=== PATIENT | male | born 1965 | race Caucasian/White ===

== ENCOUNTER 2017-12-21 04:16 | Emergency (ER) | payer SELFPAY ==
[2017-12-21] MEDS ORDERED: Tetracaine 0.5% OPHTH SOLN/PF 4 ML BOT ONE (04:48)
[2017-12-21] MEDS ORDERED: Naproxen 500 MG TAB ONE (05:09)
[2017-12-21] MEDS ORDERED: Tobramycin Sulfate 0.3% Ophth Susp 5 ml Bottle ONE (05:09)
[2017-12-21] MEDS ORDERED: HYDROcodone/Acetaminophen 10/325 mg Tablet ONE (05:09)
== END 2017-12-21 05:20 | disposition home or self-care (01) ==
LOC: MADERS 04:16
DX: S05.02XA Injury of conjunctiva and corneal abrasion without foreign body, left eye, initial encounter (principal); H11.32 Conjunctival hemorrhage, left eye; I10 Essential (primary) hypertension; X58.XXXA Exposure to other specified factors, initial encounter
CPT/HCPCS: 99283

== ENCOUNTER 2019-04-21 19:49 | Emergency (ER) | payer SELFPAY ==
[2019-04-21] MEDS ORDERED: Diazepam 5 MG TAB ONE (20:26)
[2019-04-21] MEDS ORDERED: Ibuprofen 800 MG TAB ONE (20:26)
[2019-04-21 20:56] LABS: Anion Gap 19 mmol/L (10-20); BUN (Urea Nitrogen) 7 mg/dL (8.4-25.7); CK (CPK) 204 U/L (30-200); Calc. Creatinine Clearance 0 mL/min (70-130); Calcium 9.6 mg/dL (7.8-10.44); Carbon Dioxide 20 mmol/L (22-29); Chloride 91 mmol/L (98-107); Estimated GFR-MDRD Greater than 90; Glucose 106 mg/dL (70-105); Potassium 3.3 mmol/L (3.5-5.1); Sodium 127 mmol/L (136-145)
[2019-04-21] MEDS ORDERED: Potassium Chloride 20 MEQ TAB ONE (21:14)
[2019-04-21] MEDS ORDERED: Sodium Chloride 0.9% 1,000 ML ONE (21:14)
== END 2019-04-21 22:24 | disposition home or self-care (01) ==
LOC: MADERS 19:49
DX: R25.2 Cramp and spasm (principal); E87.1 Hypo-osmolality and hyponatremia; E87.8 Other disorders of electrolyte and fluid balance, not elsewhere classified; E87.6 Hypokalemia; I10 Essential (primary) hypertension; F17.220 Nicotine dependence, chewing tobacco, uncomplicated
CPT/HCPCS: 36415; 80048; 82550; 83735; 96360; J7050

== ENCOUNTER 2022-05-12 23:58 | Emergency (ER) | payer SELFPAY ==
[2022-05-13] MEDS ORDERED: Lidocaine 1% w/Epinephrine 1:100K 20 ML VIAL ONE (00:24)
[2022-05-13] MEDS ORDERED: traMADol HCl 50 MG TAB ONE (01:15)
== END 2022-05-13 01:40 | disposition home or self-care (01) ==
LOC: MADERS 23:58
DX: S01.412A Laceration without foreign body of left cheek and temporomandibular area, initial encounter (principal); D16.5 Benign neoplasm of lower jaw bone; I10 Essential (primary) hypertension; F17.220 Nicotine dependence, chewing tobacco, uncomplicated; W01.198A Fall on same level from slipping, tripping and stumbling with subsequent striking against other object, initial encounter
CPT/HCPCS: 70450; 70486; 72125

== ENCOUNTER 2022-05-20 09:44 | Emergency (ER) | payer SELFPAY | END 2022-05-20 10:51 | disposition home or self-care (01) | LOC: MADERS 09:44 | DX: S01.81XD Laceration without foreign body of other part of head, subsequent encounter (principal); D16.5 Benign neoplasm of lower jaw bone; X58.XXXD Exposure to other specified factors, subsequent encounter ==